=== PATIENT | female | born 1950 | race Caucasian/White ===

== ENCOUNTER → 2017-12-08 10:49 | Outpatient (CLI) | payer MEDICARE, SELFPAY ==
--- NOTE | 2017-12-08 10:57 | MM_ITS ---
MM Dig screening mamm BI w/CAD CAD Screening COMPARISON: None, only report available from outside mammograms INDICATION: There is no personal or family history of breast cancer TECHNIQUE: Standard CC and MLO images were obtained. R2 CAD reviewed. FINDINGS: Prominent heterogenic fibroglandular densities are seen in the central portions of both breasts. The findings of the lateral symmetrical. There is no suspicious lesion in either breast and there are no suspicious microcalcifications. There is minimal arterial calcification in each breast. There are no suspicious microcalcifications. IMPRESSION: Moderately dense parenchymal pattern with no suspicious lesion seen BI-RADS Category: 2 Benign Finding(s) RECOMMENDED FOLLOW-UP: 1YR - 1 YEAR FOLLOW-UP (A letter has been sent to the patient regarding results of the study.)
== END ==
PROVIDERS: PCP Family Medicine; Visit Provider Family Medicine
DX: Z12.31 Encounter for screening mammogram for malignant neoplasm of breast (principal)
CPT/HCPCS: 77067

== ENCOUNTER 2018-03-24 10:00 | Outpatient (RCR) | payer MEDICARE, SELFPAY | END 2018-03-24 10:05 | disposition home or self-care (01) | LOC: OT 10:00 | PROVIDERS: Visit Provider Family Medicine | DX: M25.511 Pain in right shoulder (principal) | CPT/HCPCS: 97014; 97110; 97165; G0283 ==

== ENCOUNTER → 2018-03-31 12:05 | Outpatient (CLI) | payer MEDICARE, SELFPAY ==
--- NOTE | 2018-03-31 12:14 | XR_ITS ---
XR shoulder RT min 2V COMPARISON: None HISTORY: Right shoulder pain TECHNIQUE: Internal and external rotation views and Y-view FINDINGS: The clavicle is intact. There is minor degenerative change of the AC joint with spurring superiorly and inferiorly. There is a slightly lateral downsloping acromion process likely predisposing to some degree of impingement syndrome. A couple tiny calcifications near the greater tuberosity possibly secondary to mild degree of calcific tendinitis. IMPRESSION: Degenerative change of the AC joint combined with findings suggesting a mild predisposition to impingement syndrome and there could be a very mild degree of calcific tendinitis of the supraspinatus tendon
== END ==
PROVIDERS: PCP Family Medicine; Visit Provider Family Medicine
DX: M25.511 Pain in right shoulder (principal); G89.29 Other chronic pain
CPT/HCPCS: 73030

== ENCOUNTER 2018-07-14 09:00 | Outpatient (RCR) | payer MEDICARE, SELFPAY | END 2018-07-14 09:05 | disposition home or self-care (01) | LOC: OT 09:00 | PROVIDERS: Visit Provider Orthopaedic Surgery Adult Reconstructive Orthopaedic Surgery | DX: M75.101 Unspecified rotator cuff tear or rupture of right shoulder, not specified as traumatic (principal) | CPT/HCPCS: 97014; 97110; 97166; G0283 ==

== ENCOUNTER → 2019-04-27 08:44 | Outpatient (CLI) | payer MEDICARE, SELFPAY ==
--- NOTE | 2019-04-27 08:47 | MM_ITS ---
PROCEDURE: MM DIG SCREENING MAMM BI W/CAD CLINICAL INDICATION: SCREENING There is no personal or family history of breast cancer COMPARISON: [facility] MM Dig screening mamm BI w/CAD from 12/08/2017 TECHNIQUE: Standard CC and MLO images and 3D Tomosynthisis was obtained. R2 CAD reviewed. FINDINGS: Moderate somewhat heterogenic fibroglandular densities are seen in the central portions of both breast and the findings are fairly symmetrical and bilateral. There is no suspicious lesion in either breast and no suspicious microcalcifications. There are couple of benign-appearing microcalcifications left breast. IMPRESSION: Moderate breast density with no suspicious lesions seen BI-RAD Category: 2 Benign Finding(s) FOLLOW-UP: 1YR 1 Year Follow-up (A letter has been sent to the patient regarding results of the study.) Dictated by: Dr. Shree Burton MD 04/28/2019 08:[address] Shree Burton MD in [place] 04/28/2019 08:47
== END ==
PROVIDERS: PCP Family Medicine; Visit Provider Family Medicine
DX: Z12.31 Encounter for screening mammogram for malignant neoplasm of breast (principal)
CPT/HCPCS: 77063; 77067

== ENCOUNTER → 2019-07-23 11:22 | Outpatient (CLI) | payer MEDICARE, SELFPAY ==
[2019-07-23 11:29] LABS: Campylobacter Not Detected (NotDetected); Clostridium Difficile A/B, PCR Not Detected (NotDetected); Enteroaggregative E coli Not Detected (NotDetected); Plesimonas Shigalloides, PCR Not Detected (NotDetected); Vibrio Cholerae Not Detected (NotDetected); Vibrio, PCR Not Detected (NotDetected); Yersinia Entercolitica, PCR Not Detected (NotDetected)
[2019-07-23 11:30] LABS: Adenovirus F 40/41, stool Not Detected (NotDetected); Astrovirus Not Detected (NotDetected); Cryptosporidium Not Detected (NotDetected); Cyclospora Cayetanesis Not Detected (NotDetected); Entamoeba histolytica Not Detected (NotDetected); Enteropathogenic E coli Not Detected (NotDetected); Enterotoxigenic E coli Not Detected (NotDetected); Giardia lamblia Not Detected (NotDetected); Norovirus Not Detected (NotDetected); Rotavirus A Not Detected (NotDetected); Sapovirus Not Detected (NotDetected); Shiga-like toxin E coli Not Detected (NotDetected); Shigella Enterovasive E coli Not Detected (NotDetected)
[2019-07-23 14:38] LABS: Salmonella, PCR Detected (NotDetected)
== END ==
PROVIDERS: Visit Provider Family Medicine
DX: R19.7 Diarrhea, unspecified (principal); A02.9 Salmonella infection, unspecified
CPT/HCPCS: 87506

== ENCOUNTER → 2019-10-02 08:49 | Outpatient (CLI) | payer MEDICARE, SELFPAY ==
--- NOTE | 2019-10-02 08:58 | XR_ITS ---
PROCEDURE: XR FINGER RT MIN 2V CLINICAL INDICATION: FINGER JOINT EFFUSION Pain and swelling COMPARISON: No exams were available for comparison FINDINGS: There is a vague lucency at the mid shaft of the 5th metacarpal suggesting a nondisplaced fracture age indeterminate. Please correlate with area of pain and tenderness. There are osteoarthritic changes at the PIP and DIP joint with some periarticular erosive change at the PIP consistent with erosive osteoarthritis. There is a defect along the anterior aspect of the PIP joint measuring 3 mm consistent with an area of bony erosion. IMPRESSION: Osteoarthritic changes of the PIP and DIP joint with an area of erosion involving the volar aspect of the joint space at the PIP which could be related to erosive osteoarthritis. Other etiologies would include infection or other erosive arthritic change. Possible nondisplaced fracture of the 5th metacarpal Dictated by: Lj Galeano MD 10/02/2019 14:49 Electronically signed by Lj Galeano MD in [place] 10/02/2019 14:49
== END ==
PROVIDERS: PCP Family Medicine; Visit Provider Family Medicine
DX: M25.441 Effusion, right hand (principal)
CPT/HCPCS: 73140

== ENCOUNTER → 2021-04-30 12:21 | Outpatient (CLI) | payer MEDICARE, SELFPAY ==
--- NOTE | 2021-04-30 12:25 | XR_ITS ---
FINAL REPORT CLINICAL HISTORY: carpal yanira pain FINDINGS: LEFT WRIST 3 views were obtained. There is no acute fracture or dislocation. There are mild and moderate degenerative changes which are greatest at the 1st CMC joint. The bones are osteopenic. There is no soft tissue abnormality. IMPRESSION: Degenerative change as described. Reviewed, Interpreted and Dictated by Temo Ty III, MD Transcribed by Marge Gonzalez Authenticated by Temo Ty III, MD on 04/30/2021 01:10:50 PM [facility]
--- NOTE | 2021-04-30 12:25 | XR_ITS ---
FINAL REPORT CLINICAL HISTORY: carpal Tunnel FINDINGS: RIGHT WRIST 3 views were obtained. There is no acute fracture or dislocation. There are mild and moderate degenerative changes which are greatest at the 1st CMC joint. The bones are osteopenic. There is no soft tissue abnormality. IMPRESSION: Degenerative change as described. Reviewed, Interpreted and Dictated by Temo Ty III, MD Transcribed by Marge Gonzalez Authenticated by Temo Ty III, MD on 04/30/2021 01:10:[address] [facility]
== END ==
PROVIDERS: PCP Family Medicine; Visit Provider Orthopaedic Surgery
DX: G56.03 Carpal tunnel syndrome, bilateral upper limbs (principal)
CPT/HCPCS: 73110

== ENCOUNTER → 2021-05-12 11:52 | Outpatient (CLI) | payer MEDICARE, SELFPAY ==
--- NOTE | 2021-05-12 12:01 | XR_ITS ---
FINAL REPORT CLINICAL HISTORY: cough, hypertension FINDINGS: TWO VIEWS OF THE CHEST The heart is normal in size. The mediastinum is unremarkable. There is mild linear atelectasis or scar in the left lung base. There is no pneumothorax. IMPRESSION: Left lung base atelectasis or scar. Reviewed, Interpreted and Dictated by Temo Ty III, MD Transcribed by Shayna Raymond Authenticated by Temo Ty III, MD on 05/12/2021 01:16:08 PM [facility]
--- NOTE | 2021-05-12 12:01 | XR_ITS ---
FINAL REPORT CLINICAL HISTORY: elbow pain pre-op FINDINGS: RIGHT ELBOW Three views demonstrate no acute fracture or dislocation. Mild degenerative changes are present. There is no joint effusion. No soft tissue abnormality is seen. IMPRESSION: Mild degenerative changes. Reviewed, Interpreted and Dictated by Temo Ty III, MD Transcribed by Shayna Raymond Authenticated by Temo Ty III, MD on 05/12/2021 01:15:59 PM [facility]
--- NOTE | 2021-05-12 12:22 | ECG_ITS ---
APPROVED REPORT Exam: Resting ECG HR:93 bpm ECG Measurements Heart Rate 93 AXES MD 142 P 77 QRSd 105 QRS -4 QT 356 T 78 QTc 407 Conclusion SINUS RHYTHM NORMAL ECG UNCONFIRMED REPORT Electronically signed by : Isaac Reese MD 05/13/2021 21:02:01
[2021-05-12 12:57] LABS: Basophils # 0.1 K/mm3 (0-0.2); Basophils % 1.1 % (0.1-2.0); Eosinophils # 0.1 K/mm3 (0.0-0.4); Eosinophils % 1.6 % (0.1-12.0); Hematocrit 48.2 % (37.0-47.0); Hemoglobin 16.3 g/dL (12.2-16.2); Lymphocytes # 1.7 K/mm3 (0.7-4.5); Lymphocytes % 23.2 % (10-50); Mean Corpuscular HGB Conc 33.9 g/dL (31.8-35.4); Mean Corpuscular Hemoglobin 31.7 pg (27.0-31.2); Mean Corpuscular Volume 93.5 fl (81-99); Mean Platelet Volume 7.4 fl (7.4-10.4); Monocytes # 0.4 K/mm3 (0.1-1.0); Monocytes % 4.7 % (1.7-9.3); Neutrophils # 5.2 K/mm3 (1.8-7.8); Neutrophils % 69.4 % (37.0-80.0); Platelet Count 333 K/mm3 (142-424); Red Blood Count 5.15 M/mm3 (4.20-5.40); Red Cell Distribution Width 12.5 % (11.5-17.5); White Blood Count 7.4 K/mm3 (4.8-10.8)
[2021-05-12 13:24] LABS: Alanine Aminotransferase 28 U/L (12-78); Albumin Level 4.7 g/dl (3.5-5.0); Albumin/Globulin Ratio 1.9 (1.1-1.8); Alkaline Phosphatase 73 U/L (38-126); Anion Gap 11.7 mEq/L (5-15); Aspartate Amino Transferase 24 U/L (14-36); Blood Urea Nitrogen 16 mg/dl (7-17); Calcium 9.6 mg/dl (8.4-10.2); Carbon Dioxide 27 mmol/L (22.0-30.0); Chloride 101 mmol/L (98-107); Estimated Glomerular Filt Rate 99 ml/min (>60); GFR (African American) 120 ML/MIN (>60); Globulin 2.5 g/dL (1.3-3.2); Glucose 128 mg/dl (74-100); Potassium 3.7 mmoL/L (3.5-5.1); Sodium 136 mmol/L (136-145); Total Protein,Serum 7.2 g/dl (6.3-8.2)
[2021-05-12 13:33] LABS: Hemoglobin A1C 6.6 % (4.0-6.0)
== END ==
PROVIDERS: PCP Family Medicine; Visit Provider Orthopaedic Surgery
DX: G56.01 Carpal tunnel syndrome, right upper limb (principal); G56.21 Lesion of ulnar nerve, right upper limb; E11.9 Type 2 diabetes mellitus without complications; Z01.812 Encounter for preprocedural laboratory examination; Z11.52 Encounter for screening for COVID-19; M25.531 Pain in right wrist; Z79.84 Long term (current) use of oral hypoglycemic drugs
CPT/HCPCS: 36415; 71046; 73080; 80053; 83036; 85025; 93005; C9803; U0003; U0005

== ENCOUNTER 2021-05-14 09:22 | Day surgery (SDC) | payer MEDICARE, SELFPAY ==
[2021-05-05 09:27] VITALS: BMI 33.8
[2021-05-14] VITALS (11 sets, daily range): BP systolic 105–130; BP diastolic 66–76; PULSE 68–103; RESP 12–22; TEMP 36.2–36.6; O2SAT 93–99
--- NOTE | 2021-05-14 10:34 | P.PN_ITS ---
[facility] Anesthesia Checklist - Patient Identification Patient Identification: Arm Band - Structural Data Admitted From: Home Planned Operative Procedure/s: Cubital and carpal tunnel release Consent for Planned Operative Procedure(s) Verified: Yes - NPO Status Verified Time NPO: 00:00 - Additional verifications Anesthesia Reactions: No Hx Blood Transfusions: No Blood Transfusion Reaction: No - Airway Assessment C-Spine Mobility Assessed: Yes TMJ Mobility Assessed: Yes Dentition: Good Dentition - Neurological Assessment Level of Consciousness: Awake Hx Seizures: No Numbness or tingling in extremities: Yes - Anesthesia Plan Anesthesia Risk discussed: Yes Anesthesia Plan: Verified ASA Class: III Anesthesia Type: General [facility] History I have reviewed the patient's past medical history: Yes Medical History: Reports:: Chronic Obstructive Pulmonary Disease (COPD) (Lung atelectasis), Diabetes Mellitus Type 2, Gastroesophageal Reflux Disease(GERD) Denies:: Cancer, Diabetes Mellitus Type 1, Internal Pacemaker, MRSA, Seizures *Have you ever received a pneumonia vaccine?: Yes *Have you received a flu vaccine this season?: Yes Other Medical History: Reports: Hypothyroidism. Denies: Blood Transfusion Reaction Anesthesia experience/problems:: None Laterality Cases: Bilateral: Other Other Surgeries: No: Pacemaker Fractures: Yes (left foot) - *Social History Last grade of school completed: Some college Smoking Status: Former smoker Alcohol Intake: current Alcohol Intake Frequency:: 0-2 drinks per day Substance Use Type: denies use *Occupational Status:: retired Housing: house Household Members: spouse *Travel in the last 8 weeks: None Family Hx:: Coronary Artery Disease, Diabetes, Heart Attack, Hyperlipidemia, Hypertension, Stroke
--- NOTE | 2021-05-14 15:55 | P.PN_ITS ---
[facility] Anesthesia Record Part I Intake, IV Amount: 1,000 Estimated blood loss (mL): 5 Urine output (mL): 0 Blood Pressure: 122/70 SaO2: 94 Pulse Rate: 94 Respiratory Rate: 20 Temperature: 97.6 F Patient is:: Drowsy Stable to PACU at:: 15:53
[2021-05-14 16:04] LABS: POC Glucose,Bedside 152 (70-110)
--- NOTE | 2021-05-14 16:35 | SUR.PHASEI ---
1624 Antonio provided with detailed report. Pt left in stable condition.
--- NOTE | 2021-05-14 21:19 | HMH.OPNOTE ---
Date of procedure: 05/14/21 Pre-op Diagnosis:: 1. Cubital tunnel syndrome, right elbow 2. Carpal tunnel syndrome, right wrist Post-op Diagnosis:: Same Procedure performed:: 1. Cubital tunnel release, right elbow 2. Anterior transposition of the ulnar nerve, right elbow 3. Carpal tunnel release, right wrist Surgeon:: Edgar Armstrong MD Sign Shop Supervisor(s):: Natty Slade PA-C SITE FOREMAN:: Other (Perico Cordero) Anesthesia: LMA Estimated blood loss (mL): 5 Clinical Note:: Patient is a 70-year-old female with worsening paresthesias in both hands with more severe symptoms on the right side. The EMG/NCV study of the right upper extremity showed moderate to severe median nerve entrapment at the wrist. The study also showed mild slowing of conduction velocity of the right ulnar motor nerve at the elbow. Symptomatically, she reports worsening paresthesias over her right hand. She also has milder symptoms on the left side. She says her symptoms are gradually worsening. She also reports significant night symptoms and sleep disturbance. She says she wakes up in the middle of the night and vigorously shakes her hand to get some relief. She also reports weakness and clumsiness mainly with her right hand. She says she is dropping things frequently. She has been wearing removable wrist splint on the right side at night with some relief. On clinical examination the findings are consistent with right cubital tunnel and carpal tunnel syndromes. Therefore, a right cubital tunnel release with or without anterior transposition of the ulnar nerve and a right carpal tunnel release are indicated to relieve the pain and paresthesias, improve function and prevent further permanent nerve damage. Please refer to orthopedic office note for full details. Operative findings:: Right cubital tunnel syndrome: On examination under anesthesia, the ulnar nerve noted not to be subluxing over the medial epicondyle. At surgery, the nerve is noted to be significantly constricted as it passed through the cubital tunnel. There was presence of hourglass constriction of the ulnar nerve behind the medial epicondyle and also some compression noted as it enters the flexor carpi ulnaris muscle. After the nerve was decompressed and the cubital tunnel, it was subluxing anteriorly over the medial epicondyle with flexion and extension. Therefore, I proceeded with anterior transposition of the ulnar nerve. Right carpal tunnel syndrome: The intraoperative findings showed the median nerve to be very tightly compressed and hyperemic. The flexor retinaculum was noted to be thick and very tight. There was mild synovitis in the carpal tunnel. There was no evidence of any space-occupying lesions within the carpal tunnel. Operative note:: On the day of the surgery the patient was met in the preoperative area. Patient was positively identified, and the operative site/side was marked and initialed by me. A physical examination was performed, and the chart was updated. I have reviewed the clinical, imaging, EMG/NCV findings and discussed the diagnosis, natural history and management options in detail including both nonsurgical and surgical with the patient. Patient has had symptoms for a long time and had appropriate conservative management for a length of time without significant benefit. Therefore, following detailed discussion, patient elected to proceed with surgical patient in the form of right cubital tunnel decompression with or without anterior transposition of the ulnar nerve and right carpal tunnel release. Today I have again discussed the details of the cubital tunnel and carpal tunnel releases and ulnar nerve transposition procedure, risks, benefits, and alternatives. We have also discussed the expected postoperative recovery and rehabilitation. We have discussed that the goal of the surgery is to stop further damage to the ulnar and median nerves by freeing up the nerves and possibly bringing the ulnar ner
--- NOTE | 2021-05-14 22:44 | HMH.ANESII ---
[facility] Anesthesia Record Part II Discharge Time: 16:23 Destination: home PACU nurse assessment reviewed?: Yes Patient Condition:: Good Anesthesia Complications:: None none Swallowing reflex intact?: Yes Cyanosis?: No Blood Pressure: 107/66 Pulse Rate: 92 Temperature: 97.4 F Mental Status: Alert & Oriented Pain level:: 0 Nausea and/or vomitting:: None Intake, IV Amount: 0
[2021-12-24 10:57] LABS: POC Glucose,Bedside 113 (70-110)
== END 2021-05-14 17:10 | disposition home or self-care (01) ==
LOC: OR 09:24
PROVIDERS: PCP Family Medicine; Visit Provider Orthopaedic Surgery
DX: G56.01 Carpal tunnel syndrome, right upper limb (principal); G56.21 Lesion of ulnar nerve, right upper limb; E11.9 Type 2 diabetes mellitus without complications; E03.9 Hypothyroidism, unspecified; I10 Essential (primary) hypertension; D68.51 Activated protein C resistance; Z79.84 Long term (current) use of oral hypoglycemic drugs; Z79.899 Other long term (current) drug therapy
CPT/HCPCS: 64718; 64721; 82962; 96374; J2405

== ENCOUNTER 2021-08-19 11:00 | Outpatient (RCR) | payer MEDICARE, SELFPAY ==
--- NOTE | 2021-06-01 16:27 | HMH.OTOPEV ---
OT Inpatient Evaluation Rehab OT Outpatient Eval Start: 06/01/21 16:15 Freq: Status: Active Protocol: Document 06[facility]01/21 16:[facility] (Rec: 06/01/21 16:26 [id number] Electronically Signed By Sylwia Nogueira OT 06/01/21 16:15 Outpatient Therapy Subjective History Subjective History Pt is a 70 year old female who reports to therapy for initial evaluation to right elbow and wrist. Pt is currently s/p right cubital tunnel release, carpal tunnel release, and ulnar nerve transposition (05/14/21). Pt is right hand dominant. Pt reports she was diagnosed with CTS years ago, but within the past year her symptoms have increased significantly. Pt does demonstrate with a SLIGHT decrease in AROM at right elbow and wrist. Strength is decreased as well. Both incisions look great with no redness, draining, or swelling . Pt is currently on a 5-10 lb weight restriction per ortho. Pt will continue to be seen twice a week in order to address right UE deficits. STG AROM Right wrist Ext: 60 degrees Flex: 70 degrees Right elbow: Flex: 135 degrees Ext: 0 degrees LTG Right wrist Flex: 70 degrees Ext: 65 degrees Right elbow Flex: 140 degrees Ext: 0 degrees Chief Complaint Pain,Stiff,Swelling,Weakness, Decreased Axle Polisher Strength Symptom Type Ache,Dull Symptoms Relieved By Rest/Positioning,OTC Meds Symptoms Aggravated By Physical Activity,Lifting Prior Functional Limitations None Current Functional Limitations Reaching,Lifting,Housework, Sleeping Symptom Description Intermittent,Activity Dependent Level of pain today (0-10) 2
--- NOTE | 2021-06-29 10:52 | HMH.RHREAS ---
Rehab Reassessment Rehab OP Re-assessment Start: 06/29/21 10:19 Freq: Status: Active Protocol: Document 06/29/21 10:19 RMARSHALL (Rec: 06/29/21 10:52 [id number][facility] Electronically Signed By Sylwia Nogueira OT 06/29/21 10:19 Rehab Re-assessment Subjective Subjective Overall, it is doing better. Objective Objective Notes Pt is seen twice a week to address right elbow and wrist deficits. Each session pt receives scar massage at anterior wrist and posterior elbow. Pt also receives prom manual stretching to right elbow and wrist in all planes (flex, ext, rd, ud, supination , and pronation). AROM and strengthening exercises are completed. Modalities are provided to decrease pain/ inflammation. Assessment Progress Assessment Progressing as Expected Assessment Notes After re-assessment, pt demonstrates improvement at both wrist and elbow. AROM and strength have both improved since initial evaluation. Pt reports she has not had sharp shooting pain in over a week. Also, her worst pain at this time is a 2/10 (improvement). She does have tenderness at both scars, when pressure is applied (weightbearing). Pt returns to the doctor tomorrow for re-evaluation. Current AROM and MMT R elbow Flex: 135 degrees, 4- Ext: 0 degrees, 4- Sup: 90 degrees; 4- Pro: 90 degrees; 4- Current AROM and MMT right wrist Flex: 68 degrees; 4- Ext: 60 degrees; 4- RD: 25 degrees; 4- UD: 25 degrees; 4- Patient goals met ST-5 LT and 4 Goals Not Met See below Revised Goals LT, 3, and 5 Plan Plan Continue with OT plan of care
--- NOTE | 2021-07-27 11:44 | HMH.RHREAS ---
Rehab Reassessment Rehab OP Re-assessment Start: 06/29/21 10:19 Freq: Status: Active Protocol: Document 07/27/21 10:54 RMARSHALL (Rec: 07/27/21 11:44 RMARSHALL [id number]) Electronically Signed By Sylwia Nogueira OT 07/27/21 10:54 Rehab Re-assessment Subjective Subjective I see improvements. Objective Objective Notes Pt is seen twice a week to address right elbow and wrist deficits. Each session pt receives scar massage at anterior wrist and posterior elbow. Pt also receives prom manual stretching to right elbow and wrist in all planes (flex, ext, rd, ud, supination , and pronation). AROM and strengthening exercises are completed. Modalities are provided to decrease pain/ inflammation. Assessment Progress Assessment Progressing as Expected Assessment Notes Pt continues to demonstrate improvement with both strength and AROM at elbow and wrist. Pt is no longer having the sharp pain in the hand that she was having. Pt's AROM is now within normal limits at both the wrist and the elbow. Pt does complain of continued numbness in the small finger of the right hand. Current AROM and MMT R elbow Flex: 138 degrees, 4 Ext: 0 degrees, 4 Sup: 90 degrees; 4 Pro: 90 degrees; 4- Current AROM and MMT right wrist Flex: 68 degrees; 4- Ext: 68 degrees; 4- RD: 25 degrees; 4- UD: 25 degrees; 4- Patient goals met ST-5 LT and 4 Goals Not Met See below Revised Goals LT, 3, and 5 Plan Plan Continue with OT plan of care at this time. Frequency of Therapy 2's a week Duration of therapy 4 more weeks Time and Billing Re-Eval Time 10 Re-Eval Billing Units
== END 2021-08-19 11:05 | disposition home or self-care (01) ==
LOC: OT 11:00
PROVIDERS: PCP Family Medicine; Visit Provider Orthopaedic Surgery
DX: G56.21 Lesion of ulnar nerve, right upper limb (principal); G56.01 Carpal tunnel syndrome, right upper limb
CPT/HCPCS: 97010; 97014; 97035; 97110; 97140; 97164; 97166; G0283

== ENCOUNTER → 2021-11-12 15:58 | Outpatient (CLI) | payer MEDICARE, SELFPAY ==
--- NOTE | 2021-11-12 16:01 | MM_ITS ---
PROCEDURE INFORMATION: Exam: MG Bilateral Screening 3D Mammography Exam date and time: 11/12/2021 3:55 PM Age: 71 years old Clinical indication: Screening examination TECHNIQUE: Imaging protocol: Bilateral Screening tomosynthesis and 2D mammography including computer-aided detection (CAD) when performed. COMPARISON: 1. MG MM DIG SCREENING MAMM BI W/CAD 04/27/2019 9:09 AM 2. MG [facility] MM Dig screening mamm BI w/CAD 12/08/2017 11:06 AM FINDINGS: MAMMOGRAPHY: Breast composition: The breasts are heterogeneously dense, which may obscure small masses. Mass: None. Architectural distortion: None. Calcifications: No suspicious calcifications. Asymmetric density: None. Skin thickening: None. Axillary adenopathy: None. IMPRESSION: No mammographic evidence of malignancy. Annual screening is recommended unless otherwise clinically indicated. ASSESSMENT: BI-RADS Category 1: Negative
== END ==
PROVIDERS: PCP Family Medicine; Visit Provider Family Medicine
DX: Z12.31 Encounter for screening mammogram for malignant neoplasm of breast (principal)
CPT/HCPCS: 77063; 77067

== ENCOUNTER → 2022-11-30 13:11 | Outpatient (POV) | payer MEDICARE, SELFPAY | PROVIDERS: Visit Provider Dermatology | DX: Z00.00 Encounter for general adult medical examination without abnormal findings (principal) ==

== ENCOUNTER 2023-11-11 14:56 | Outpatient (CLI) | payer MEDICARE, SELFPAY ==
--- NOTE | 2023-11-11 15:00 | MM_ITS ---
PROCEDURE INFORMATION: Exam: MG Bilateral Screening 3D Mammography Exam date and time: 11/11/2023 2:47 PM Age: 73 years old Clinical indication: Screening exam. TECHNIQUE: Imaging protocol: Bilateral Screening tomosynthesis and 2D mammography including computer-aided detection (CAD) when performed. COMPARISON: 1. MG MM DIG SCREENING MAMM BI W/CAD 11/12/2021 3:55 PM 2. MG MM DIG SCREENING MAMM BI W/CAD 04/27/2019 9:09 AM FINDINGS: MAMMOGRAPHY: Breast composition: The breasts are heterogeneously dense, which may obscure small masses. Mass: No suspicious masses. Architectural distortion: None. Calcifications: No suspicious calcifications. Asymmetric density: None. Skin thickening: None. Axillary adenopathy: None. IMPRESSION: No mammographic evidence of malignancy. Annual screening is recommended unless otherwise clinically indicated. ASSESSMENT: BI-RADS Category 1: Negative
== END 2023-11-11 23:59 | disposition home or self-care (01) ==
LOC: RAD 14:56
PROVIDERS: PCP Family Medicine; Visit Provider Family Medicine
DX: Z12.31 Encounter for screening mammogram for malignant neoplasm of breast (principal)
CPT/HCPCS: 77063; 77067